=== PATIENT | female | born 1935 | race American Indian/Alaskan Native ===

== ENCOUNTER 2022-01-22 10:05 | Outpatient (CLI) | payer BC ==
--- NOTE | 2022-01-28 08:43 | Mammography Report ---
DIGITAL DIAGNOSTIC MAMMOGRAM CONVENTIONAL, 01/22/2022 CLINICAL INFORMATION / INDICATION: Patient presents for evaluation of intermittent left breast pain. n64.89 TECHNIQUE: Digital bilateral mammographic imaging was performed. COMPARISON: Prior mammogram 11/17/2020 and 08/21/2018 FINDINGS: Breast Density: The breasts are heterogeneously dense, which may obscure small masses. No dominant mass, suspicious calcifications or architectural distortion in either breast. There has been no significant change compared with the prior examinations. IMPRESSION: 1. There is no mammographic abnormality identified to account for left breast pain, therefore clinica l correlation is recommended. Follow up recommendation: Routine yearly screening mammogram. BI-RADS Category 1: NEGATIVE. A "normal" or negative report should not discourage follow up or biopsy of a clinically significant f inding. A written summary of these findings will be mailed to the patient. The patient will be entered into a mammography reporting system which will generate a reminder letter for the patient's next appointmen t at the appropriate interval. According to the [employer], yearly mammograms are recommended starting at age 40 and continuing as long as a woman is in good health. Breast MRI is recommended for women with an bobo roximately 20-25% or greater lifetime risk of breast cancer, including women with a strong family his tory of breast or ovarian cancer and women who have been treated for Hodgkin's disease. Signer Name: Lala Ulloa MD Signed: 01/28/2022 8:39 AM Workstation Name: [id number]
== END 2022-01-22 10:06 | disposition home or self-care (01) ==
LOC: MAMMO 10:05
PROVIDERS: ATTEND Internal Medicine
DX: N64.89 Other specified disorders of breast (principal)
CPT/HCPCS: 77066